=== PATIENT | female | born 1965 | race Caucasian/White ===

== ENCOUNTER 2022-10-06 08:03 | Outpatient (CLI) | payer BC, SELFPAY | END 2022-10-06 08:04 | disposition home or self-care (01) | PROVIDERS: PCP Family Medicine; Visit Provider Family Medicine | DX: E78.5 Hyperlipidemia, unspecified (principal); F41.9 Anxiety disorder, unspecified; Z12.4 Encounter for screening for malignant neoplasm of cervix; Z13.89 Encounter for screening for other disorder; Z83.3 Family history of diabetes mellitus | CPT/HCPCS: 80061; 87086; 87186 ==

== ENCOUNTER 2024-02-15 10:05 | Outpatient (CLI) | payer BC, SELFPAY | END 2024-02-15 10:06 | disposition home or self-care (01) | PROVIDERS: PCP Family Medicine; Visit Provider Family Medicine | DX: E78.5 Hyperlipidemia, unspecified (principal); Z83.3 Family history of diabetes mellitus; Z13.228 Encounter for screening for other metabolic disorders | CPT/HCPCS: 80048; 80061 ==

== ENCOUNTER 2025-02-15 08:21 | Outpatient (CLI) | payer OTHER, SELFPAY | END 2025-02-15 08:22 | disposition home or self-care (01) | PROVIDERS: PCP Family Medicine; Visit Provider Family Medicine | DX: Z13.1 Encounter for screening for diabetes mellitus (principal); E78.5 Hyperlipidemia, unspecified | CPT/HCPCS: 80048; 80061 ==